=== PATIENT | male | born 1950 | race Caucasian/White ===

== ENCOUNTER → 2025-05-17 15:49 | Outpatient (REF) | payer OTHER, SELFPAY | LOC: RAD 15:49 | PROVIDERS: FAMILY PHYSICIAN Student in an Organized Health Care Education/Training Program | DX: I87.009 Postthrombotic syndrome without complications of unspecified extremity (principal) | CPT/HCPCS: 93970 ==

== ENCOUNTER → 2025-08-01 07:13 | Outpatient (REF) | payer OTHER, MEDICARE, SELFPAY | LOC: MRI 3T 07:13 | PROVIDERS: ATTENDING PHYSICIAN Physician Assistant Surgical; FAMILY PHYSICIAN Family Medicine | DX: S52.611A Displaced fracture of right ulna styloid process, initial encounter for closed fracture (principal) | CPT/HCPCS: 73221 ==